=== PATIENT | female | born 2000 | race Asian ===

== ENCOUNTER 2021-05-15 08:38 | Day surgery (SDC) | payer OTHER ==
[2021-05-14 11:28] VITALS: BMI 16.7
[2021-05-15] MEDS ORDERED: Lidocaine 1% w/Epinephrine 1:100K 20 ML VIAL ONE (08:59)
[2021-05-15] MEDS ORDERED: AFRIN NASAL MIST 15 ML BOT ONE ×2 (08:59→09:16)
[2021-05-15] MEDS ORDERED: EPINEPHrine 1 MG/ML AMP ONE (08:59)
[2021-05-15] MEDS ORDERED: Bacitracin Zinc Ointment 30 gm TUBE ONE (08:59)
[2021-05-15] MEDS ORDERED: Fentanyl 250 MCG/5 ML VIAL ONE (09:00)
[2021-05-15 09:41] LABS: BHCG - Serum Negative (NEGATIVE); Pregs Control Background? CLEAR/WHITE (CLR/WHITE); Pregs Control Bar Appear? YES (CONTROL BAR)
[2021-05-15] MEDS ORDERED: Midazolam HCl 2 mg/2 ml Vial ONE (09:59)
[2021-05-15] MEDS ORDERED: Ondansetron PF 4 MG/2 ML Vial ONE (10:09)
[2021-05-15] MEDS ORDERED: Dexamethasone 20 MG/5 ML VIAL ONE (10:09)
[2021-05-15] MEDS ORDERED: Lidocaine 1% PF 5 ML VIAL ONE (10:09)
[2021-05-15] MEDS ORDERED: ePHEDrine 50 MG/ML VIAL ONE (10:09)
[2021-05-15] MEDS ORDERED: Rocuronium Bromide 10 MG/ML (10ML VIAL) ONE (10:09)
[2021-05-15] MEDS ORDERED: PROPOFOL 200 MG/20 ML VIAL ONE (10:09)
[2021-05-15] MEDS ORDERED: Fentanyl 100 MCG/2 ML VIAL ONE (12:01)
== END 2021-05-15 13:40 | disposition home or self-care (01) ==
LOC: SDC 08:38
PROVIDERS: ATTEND Student in an Organized Health Care Education/Training Program
PROC: 09QK8ZZ Repair Nasal Mucosa and Soft Tissue, Via Natural or Artificial Opening Endoscopic (ICD-10-PCS; principal; 2021-05-15)
PROC: 09SM0ZZ Reposition Nasal Septum, Open Approach (ICD-10-PCS; principal; 2021-05-15)
PROC: 09TL0ZZ Resection of Nasal Turbinate, Open Approach (ICD-10-PCS; principal; 2021-05-15)
DX: J34.2 Deviated nasal septum (principal); J34.3 Hypertrophy of nasal turbinates; J34.89 Other specified disorders of nose and nasal sinuses; J32.9 Chronic sinusitis, unspecified; H69.80 Other specified disorders of Eustachian tube, unspecified ear; D53.9 Nutritional anemia, unspecified; F17.290 Nicotine dependence, other tobacco product, uncomplicated; Z79.899 Other long term (current) drug therapy
CPT/HCPCS: 36415; 84703; 85014; C1889; J0171; J1100; J2250; J2405; J2704; J3010; J3490